=== PATIENT | male | born 1975 | race Caucasian/White ===

== ENCOUNTER 2017-06-12 05:38 | Observation (INO) | payer OTHER ==
[2017-06-12] MEDS ORDERED: LIDOCAINE 2% (SDV) 5 ML INJ (06:10)
[2017-06-12] MEDS ORDERED: PROPOFOL 20 ML (06:10)
[2017-06-12] MEDS ORDERED: NEOSTIGMINE 3 MG/3 ML SYRINGE (06:10)
[2017-06-12] MEDS ORDERED: ROCURONIUM 50 MG INJ ×2 (06:10→07:00)
[2017-06-12] MEDS ORDERED: GLYCOPYRROLATE 0.4 MG INJ (06:10)
[2017-06-12] MEDS ORDERED: FENTAnyl 50 MCG/ML VIAL ×2 (06:11→09:46)
[2017-06-12] MEDS ORDERED: DEXAMETHASONE 4 MG/ML 1 ML INJ (06:11)
[2017-06-12] MEDS ORDERED: ONDANSETRON 4 MG INJ ×2 (06:11→11:18)
[2017-06-12] MEDS ORDERED: MIDAZOLAM 1 MG/ML 2 ML INJ (06:11)
[2017-06-12] MEDS ORDERED: ROPIVACAINE 0.5 % 30 ML VIAL (06:19)
[2017-06-12] MEDS ORDERED: EPHEDrine SULFATE 50 MG/5 ML SYG IV (06:30)
[2017-06-12] MEDS ORDERED: ONDANSETRON 4 MG INJ IV ×2 (06:30→07:30)
[2017-06-12] MEDS ORDERED: LABETALOL HCL 20MG INJ IV (06:30)
[2017-06-12] MEDS ORDERED: morphine (1 MG/ML) 10ML SYRINGE IV ×3 (06:30)
[2017-06-12] MEDS ORDERED: MEPERIDINE 25 MG INJ IV (06:30)
[2017-06-12] MEDS ORDERED: DIPHENHYDRAMINE 50 MG INJ IV (06:30)
[2017-06-12] MEDS ORDERED: FENTAnyl 50 MCG/ML VIAL IV ×2 (06:30)
[2017-06-12] MEDS ORDERED: MIDAZOLAM 1 MG/ML 2 ML INJ IV (06:30)
[2017-06-12] MEDS ORDERED: HYDROmorphONE (0.2 MG/ML) 10ML SYG IV ×3 (06:30)
[2017-06-12] MEDS ORDERED: OXYCODONE/ACETAMINOPHEN (5/325) TAB PO ×2 (06:30)
[2017-06-12] MEDS ORDERED: ATROPINE 1 MG/10 ML SYRINGE IV (06:30)
[2017-06-12] MEDS ORDERED: hydrALAzine 20 MG INJ IV (06:30)
[2017-06-12] MEDS ORDERED: CEFAZOLIN 1 GM INJ (07:00)
[2017-06-12] MEDS ORDERED: SUCCINYLCHOLINE CHLORIDE 100 MG/5 ML SYG IV (07:00)
[2017-06-12 07:25] LABS: INR 1.06; PROTIME 13.9 Sec (11.9-14.9); PT RATIO 1.1
[2017-06-12 07:26] LABS: PARTIAL THROMBOPLASTIN TIME 33.7 Sec (25.0-35.0)
[2017-06-12] MEDS ORDERED: morphine 10 MG INJ IV (07:30)
[2017-06-12] MEDS ORDERED: CEFAZOLIN 1 GM INJ IV (07:30)
[2017-06-12] MEDS: CEFAZOLIN 2 GM/50 ML (PMX) 50 ML IVPB ×3 (07:30→23:44)
[2017-06-12] MEDS ORDERED: BISACODYL 10 MG SUPP PR (07:30)
[2017-06-12] MEDS ORDERED: DIPHENHYDRAMINE 25 MG CAP PO (07:30)
[2017-06-12] MEDS ORDERED: hydrALAzine 20 MG INJ (09:35)
[2017-06-12] MEDS: ROPIVACAINE 0.5 % 30 ML VIAL (11:06)
[2017-06-12] MEDS: POVIDONE IODINE 10% 28.4 GM OINT (11:14)
[2017-06-12] MEDS: POLYMYXIN/BACITRACIN 1L IRRIG (11:16)
[2017-06-12] MEDS: HYDROmorphONE 0.2 MG/ML PCA IV (12:04)
[2017-06-12] MEDS: SOD CHLORIDE 0.9% 1,000 ML IV ×2 (13:02→15:47)
[2017-06-12] MEDS: SENNA/DOCUSATE NA (8.6MG/50MG) TAB PO ×2 (13:06→20:58)
[2017-06-12] MEDS: RIVAROXABAN 10 MG TABLET PO (17:05)
[2017-06-13] MEDS: SOD CHLORIDE 0.9% 1,000 ML IV (03:28)
[2017-06-13] MEDS: OXYCODONE/ACETAMINOPHEN (5/325) TAB PO ×2 (08:45→12:55)
[2017-06-13] MEDS: SENNA/DOCUSATE NA (8.6MG/50MG) TAB PO (08:46)
[2017-06-14] MEDS ORDERED: MAGNESIUM HYDROXIDE 30ML CUP PO (21:00)
== END 2017-06-13 12:55 | disposition home or self-care (01) ==
LOC: SDS 05:38 → REC 07:28 → MS1 12:45
DX: M19.171 Post-traumatic osteoarthritis, right ankle and foot (principal); S82.301A Unspecified fracture of lower end of right tibia, initial encounter for closed fracture; I10 Essential (primary) hypertension; E66.01 Morbid (severe) obesity due to excess calories; Z68.33 Body mass index [BMI] 33.0-33.9, adult; X58.XXXA Exposure to other specified factors, initial encounter
CPT/HCPCS: 29898; 73610-RT; 85610; 85730; 97161